=== PATIENT | female | born 1960 | race Caucasian/White ===

== ENCOUNTER 2019-04-05 16:40 | Emergency (ER) | payer BC ==
[2019-04-05 17:07] VITALS: BP 147/83
[2019-04-05] MEDS ORDERED: Ondansetron ODT TAB* 4 MG PO ONE (17:23)
--- NOTE | 2019-04-05 17:26 | UC ---
UC General HPI - HPI Summary HPI Summary: 58-year-old female comes in with a chief complaint of 3 days of not feeling well and having an elevated blood pressure reading at work just prior to arrival. For 3 days ago patient started feeling nauseous fatigued with mild frontal headache. No fevers measured. No ear pain no sore throat. She has had some diarrhea no blood in the diarrhea. When she was feeling fatigued at work the nurse at work checked her blood pressure and said it was too high to tell her she needs to get checked. Patient is on blood pressure medicine and has a follow-up in April with her primary care physician. - History of Current Complaint Chief Complaint: UCGeneralIllness Stated Complaint: FEVER HBP Time Seen by Provider: 04/05/19 17:11 Pain Intensity: 0 - Allergy/Home Medications Allergies/Adverse Reactions: Allergies Allergy/AdvReac Type Severity Reaction Status Date / Time No Known Allergies Allergy Verified 04/05/19 17:08 PMH/Surg Hx/FS Hx/Imm Hx Previously Healthy: Yes Endocrine History: Diabetes Cardiovascular History: Hypertension GI/ History: Gastroesophageal Reflux - Surgical History Surgical History: None - Family History Known Family History: Positive: Non-Contributory - Social History Alcohol Use: None Substance Use Type: None Smoking Status (MU): Never Smoked Tobacco Review of Systems All Other Systems Reviewed And Are Negative: Yes Constitutional: Positive: Fatigue Skin: Positive: Negative Eyes: Positive: Negative ENT: Positive: Other - SEE HPI Respiratory: Positive: Negative Cardiovascular: Positive: Negative Gastrointestinal: Positive: Diarrhea, Nausea Genitourinary: Positive: Negative Motor: Positive: Negative Neurovascular: Positive: Negative Musculoskeletal: Positive: Negative Neurological: Positive: Headache Psychological: Positive: Negative Is Patient Immunocompromised?: No Physical Exam Triage Information Reviewed: Yes Appearance: Well-Appearing, No Pain Distress, Well-Nourished Vital Signs: Initial Vital Signs Temp 98.1 F 04/05/19 17:02 Pulse 102 04/05/19 17:02 Resp 18 04/05/19 17:02 BP 147/83 04/05/19 17:02 Pulse Ox 98 04/05/19 17:02 Vital Signs Reviewed: Yes Eye Exam: Normal Eyes: Positive: Conjunctiva Clear ENT: Positive: Pharynx normal, TMs normal Neck: Positive: Supple Respiratory: Positive: Lungs clear, Normal breath sounds, No respiratory distress Cardiovascular: Positive: RRR Abdomen Description: Positive: Nontender Musculoskeletal: Positive: Strength Intact, ROM Intact Neurological: Positive: Alert, Muscle Tone Normal Psychological: Positive: Age Appropriate Behavior Skin Exam: Normal Course/Dx - Course Course Of Treatment: PATIENT'S BLOOD PRESSURE WAS 147/83 HERE IN CLINIC. Overall her symptoms sound viral. Is not clear why her blood pressure reading was elevated just prior to arrival at work. Patient is being treated with Zofran for the nausea. She has no abdominal pain. No fever. Patient follow-up with primary care doctor get reevaluated sooner if worse. - Diagnoses Provider Diagnosis: Fatigue, Nausea, Hypertension Discharge ED - Sign-Out/Discharge Documenting (check all that apply): Patient Departure All imaging exams completed and their final reports reviewed: No Studies - Discharge Plan Condition: Stable Disposition: HOME Prescriptions: Ondansetron ODT TAB* [Zofran 4 MG Odt TAB*] 4 mg PO Q6H PRN #10 tab.odt PRN Reason: Nausea Patient Education Materials: Acute Nausea and Vomiting (ED), Hypertension (ED) , Fatigue (ED) Forms: *Work Release Referrals: Melony Horton MD [Primary Care Provider] - Additional Instructions: FOLLOW UP WITH YOUR DOCTOR. GET RECHECKED SOONER IF YOUR CONDITION WORSENS OR ANY QUESTIONS OR CONCERNS. - Billing Disposition and Condition Condition: STABLE Disposition: Home
== END 2019-04-05 17:35 | disposition home or self-care (01) ==
LOC: UCEAST 16:40
DX: I10 Essential (primary) hypertension (principal); R53.83 Other fatigue; R11.0 Nausea; E11.9 Type 2 diabetes mellitus without complications; K21.9 Gastro-esophageal reflux disease without esophagitis
CPT/HCPCS: 99212; A9270-GY; G0463